=== PATIENT | female | born 2000 | race Caucasian/White ===

== ENCOUNTER 2018-12-08 03:02 | Emergency (ER) | payer OTHER ==
[2018-12-08] MEDS: LORAZEPAM 1 MG TAB PO (04:21)
[2018-12-08] MEDS: IBUPROFEN 600 MG TAB PO (04:21)
== END 2018-12-08 05:36 | disposition home or self-care (01) ==
LOC: FTE 03:02
DX: M94.0 Chondrocostal junction syndrome [Tietze] (principal); F41.1 Generalized anxiety disorder
CPT/HCPCS: 71045; 81025; 93005